=== PATIENT | female | born 1965 | race Caucasian/White ===

== ENCOUNTER → 2021-09-05 | Outpatient (CLI) | payer OTHER ==
--- NOTE | 2021-09-05 13:47 | XR ---
Right shoulder HISTORY: Muscle strain, pain 3 views of the right shoulder Arthropathy is present at the chromic clavicular joint. Distal acromion is downturned. No fracture or dislocation. Right lung as visualized is normal. Some mild spurring is present glenohumeral joint. N o fracture or dislocation. IMPRESSION: Acromioclavicular joint arthropathy. Mild facet arthritis right glenohumeral joint.
--- NOTE | 2021-09-05 13:50 | XR ---
Cervical spine HISTORY: Muscle strain, pain 6 views of the cervical spine There is a scoliosis suspected within the thoracic spine. There is no evident foraminal encroachment on oblique views. Cervical vertebral bodies show preserved height, alignment, bone mineralization is mildly reduced. There is loss of disc height at C5-6 and C 6-7 with associated spondylosis. Prevertebral soft tissues are normal. Odontoid view is limited. IMPRESSION: Degenerative disc disease.
== END | disposition home or self-care (01) ==
LOC: RADXRMAIN 12:51
PROVIDERS: ATTEND Emergency Medicine
DX: S16.1XXA Strain of muscle, fascia and tendon at neck level, initial encounter (principal); S46.919A Strain of unspecified muscle, fascia and tendon at shoulder and upper arm level, unspecified arm, initial encounter; R20.9 Unspecified disturbances of skin sensation; M50.30 Other cervical disc degeneration, unspecified cervical region; M12.811 Other specific arthropathies, not elsewhere classified, right shoulder; X58.XXXA Exposure to other specified factors, initial encounter
CPT/HCPCS: 72050